=== PATIENT | female | born 1995 | race Caucasian/White ===

== ENCOUNTER 2023-07-20 20:49 | Outpatient (CLI) | payer SELFPAY ==
[~2023-07-20] VITALS: Ht 152.4 cm; Wt 72.7 kg
--- NOTE | 2023-07-20 20:45 | NUR ---
PATIENT ARRIVED VIA EMS DUE TO DOMESTIC DISPUTE WITH SPOUSE. PATIENT STATED THAT "THEY WERE MOVING THINGS IN THE HOUSE AND THE SPOUSE WAS MOVING A MATRESS AND IT HIT THE PATIENTS STOMACH." DENIES VAGINAL BLEEDING. PATIENT STATES, "HAVING SOME ABDOMINAL DISCOMFORT THAT FEELS LIKE STRONG CRAMPS IN HER ABDOMEN ALONG WITH BACK PAIN THAT COMES AND GOES." PATIENT RATES DISCOMFORT 08/17. PATIENT STATES SHE HAS A PLACENTA PREVIA AND WAS SUPPOSED TO TRANSFER CARE TO [facility] BUT HER PLANS OF MOVING CHANGED SO SHE HASN'T BEEN SEEN BY AN OB SINCE MID JUNE. PATIENT CHANGED INTO HOSPITAL GOWN. [id number] APPLIED
[~2023-07-20 20:49] MED LIST: CEFTIN500 MG PO
[2023-07-20 21:15] VITALS: BP 128/71; PULSE 98; TEMP 97.7
[2023-07-20] MEDS ORDERED: LR 1,000 ML IV PRN (21:15)
[2023-07-20] MEDS ORDERED: Acetaminophen 500 MG TAB PO PRN (21:15)
--- NOTE | 2023-07-20 21:15 | NUR ---
2114- DR. MILLER AT BEDSIDE. EXPLAINS TO PATIENT PLAN OF CARE, SPEC EXAM DUE TO PLACENTA PREVIA AND ULTRASOUND. PATIENT VERBALIZES UNDERSTANDING. 2120- SPEC EXAM PERFORMED BY DR. MILLER. CERVIX CLOSED WITH NO DRAINAGE NOTED. 2124- ULTRASOUND PERFORMED BY DR. MILLER. BABY BREECH PRESENTATION WITH PLACENTA LOW LYING. 2127- PATIENT DISCONECTED FROM MONITORS TO USE RESTROOM
[2023-07-20] MEDS ORDERED: PRENATAL TABLET PO (21:44)
[2023-07-20 22:15] LABS: COLLECTION METHOD CLEAN CATCH
[2023-07-20 22:21] LABS: URINE APPEARANCE CLEAR (CLEAR/HAZY); URINE BLOOD NEGATIVE (NEGATIVE); URINE COLOR YELLOW (YELLOW); URINE GLUCOSE NEGATIVE (NEGATIVE); URINE KETONE 3+ (NEGATIVE); URINE NITRATE NEGATIVE (NEGATIVE); URINE PROTEIN(semi-quant) NEGATIVE (NEGATIVE); URINE UROBILINOGEN 0.2 E.U/dL (0.2-1.0)
[2023-07-20] MEDS ORDERED: Betamethasone Acetate/Na Phos 6 MG/ML 5 ML MDV IM ONE (22:30)
[2023-07-20] MEDS ORDERED: NIFEdipine 10 MG CAP PO ONE (22:30)
[2023-07-20] MEDS ORDERED: D5LR 1,000 ML IV SCH (22:30)
--- NOTE | 2023-07-20 22:50 | NUR ---
DR. MILLER AT BEDSIDE EDUCATING PATIENT ON RECOMENDATIONS OF TRANSFERRING TO [facility] DUE TO SYMPTOMS NOT GETTING BETTER, RISK OF PREMATURE DELIVERY AND PLACENTA PREVIA. PATIENT STATED SHE NEEDED TO TALK TO SPOUSE AND SEE WHAT THEY WOULD LIKE TO DO.
--- NOTE | 2023-07-20 23:30 | NUR ---
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 PATIENT STATES HER CRAMPS AND BACK PAIN ARE MANAGEABLE. PATIENT STATED THAT [facility] LET HER KNOW BEFORE LEAVING WITH EMS TO GO TO THE HOSPITAL THAT THEY WERE ABLE TO TRANSFER HER BACK HOME FROM THE HOSPITAL TO ASSESS SITUATION WITH SPOUSE. PATIENT VERBALIZED THAT SPOUSE WASN'T HAPPY WITH THE SITUATION AND THAT SHE WASN'T SURE IF SHE WOULD WANT TO STAY HOME WITH HIM WITH THEIR KIDS DUE TO HIS BEHAVIOR EARLIER AND SINCE HE HAS BEEN DRINKING THIS EVENING. THIS NURSE PROVIDED RESOURCES FOR PATIENT TO FIND A SAFE PLACE TO GO ALONG WITH EDUCATING PATIENT ON TALKING WITH [facility] WHEN THEY TRANSFER HER HOME. PATIENT VERBALIZES UNDERSTANDING OF PLAN OF CARE.
[2023-07-20 23:55] VITALS: BP 125/52; PULSE 134
--- NOTE | 2023-07-21 00:05 | NUR ---
CALL PLACED TO [facility] EXPRESS NUMBER [facility] FOR REQUEST TO TRANSPORT PATIENT BACK HOME. DISPATCH STATED THEY WILL HAVE AN OFFICER HEAD TO THE HOSPITAL TO TRANSFER PATIENT.
--- NOTE | 2023-07-21 00:30 | NUR ---
PATIENT EDUCATED ON RETURNING TO HOSPTIAL AROUND 2100 ON 07/20 FOR 2ND DOSE OF BETAMETHASONE AND NST, TAKING NIFEDIPINE 10MG EVERY 6 HRS FOR 24 HOURS, STAYING WELL HYDRATED, RETURNING TO HOSPITAL IF VAGINAL BLEEDING NOTED, CALLING [facility] TO GET REMAINING VISITS SCHEDULED OR IF MOVING TO [facility] TO ESTABLISH CARE WITH NEW OB DUE TO COMPLICATIONS. PATIENT VERBALIZES UNDERSTANDING. QUESTIONS INVITED AND ANSWERED. [facility] OFFICER AT BEDSIDE FOR TRANSPORTING PATIENT HOME. PATIENT ASSISTED OFF UNIT VIA WHEELCHAIR PER PATIENT REQUEST.
[2023-07-21] MEDS ORDERED: NIFEdipine 10 MG CAP PO SCH (05:00)
== END 2023-07-21 00:30 | disposition home or self-care (01) ==
LOC: LDRO 20:49
PROVIDERS: Obstetrics & Gynecology
DX: O99.891 Other specified diseases and conditions complicating pregnancy (principal); R10.9 Unspecified abdominal pain; Z3A.25 25 weeks gestation of pregnancy
CPT/HCPCS: J0702

== ENCOUNTER 2023-08-09 19:22 | Outpatient (CLI) | payer MEDICAID ==
[~2023-08-09] VITALS: Ht 152.4 cm; Wt 72.7 kg
[~2023-08-09 19:22] MED LIST changes: +PRENATAL TABLET PO
--- NOTE | 2023-08-09 19:25 | NUR ---
to L&D for labor assessment via EMS. Pt reports abd pains x 2 days and asks "are they ctx. I was at my parenting class with my daughter and they were getting worse. My has the car. Denies vaginal bleeding, LOF, or vaginal pressure." Pt vey social. 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 Abd non-tender when applying monitors. Able to contact who has picked up daughter, states "great he's giving them KIT_Kats before bed" Orineted to room, monitor plan of care. SVE FT/ high/post no LOF or bloody shown noted. Pt tolerates exam well. Plan of care reviewed with pt. Pt denies questions stating "oh, I've been here before"
[2023-08-09 19:30] VITALS: BP 133/78; PULSE 97; TEMP 98
[2023-08-09] MEDS ORDERED: LR 1,000 ML IV PRN (19:45)
[2023-08-09 20:20] VITALS: BP 137/67; PULSE 108
--- NOTE | 2023-08-09 20:25 | NUR ---
Repeat SVE unchanged, no LOF or vaginal bleeding. Presenting part ballotable. Pt denies change in discomfort level. Pt arrived to unit via EMS. States "I think my will come get me if he answers his phone."
--- NOTE | 2023-08-09 20:45 | NUR ---
Pt states "I got my hospital to answer the phone. He said he would come get me"discharge instructions reviewed with pt. Stressed importance of keeping appt with [facility]. verbalizes understanding. Ambulatory off unit.
== END 2023-08-09 20:45 | disposition home or self-care (01) ==
LOC: LDRO 19:22
DX: O99.891 Other specified diseases and conditions complicating pregnancy (principal); R25.2 Cramp and spasm; Z3A.29 29 weeks gestation of pregnancy